=== PATIENT | female | born 1960 ===

== ENCOUNTER 2023-01-10 11:30 | Inpatient (IN) | payer OTHER ==
[~2023-01-10] VITALS: Ht 162.6 cm; Wt 103.0 kg
[2023-01-10] MEDS ORDERED: TELMISARTAN-HC1 EACH PO (13:10)
== END 2023-01-14 13:06 | disposition home or self-care (01) | DRG 741 ==
LOC: O/R 01-12 07:12 → SURG 01-12 11:30 → OB/GYN 01-12 14:57 → SURG 01-12 23:15 → OB/GYN 01-14 13:06
PROVIDERS: ADMIT Obstetrics & Gynecology Gynecologic Oncology; ATTEND Obstetrics & Gynecology Gynecologic Oncology
PROC: 0UT70ZZ Resection of Bilateral Fallopian Tubes, Open Approach (ICD-10-PCS; 2023-01-12)
PROC: 0UT20ZZ Resection of Bilateral Ovaries, Open Approach (ICD-10-PCS; 2023-01-12)
PROC: 07BD0ZZ Excision of Aortic Lymphatic, Open Approach (ICD-10-PCS; 2023-01-12)
PROC: 0DBU0ZZ Excision of Omentum, Open Approach (ICD-10-PCS; 2023-01-12)
PROC: 0UT90ZZ Resection of Uterus, Open Approach (ICD-10-PCS; principal; 2023-01-12 23:15)
DX: D06.0 Carcinoma in situ of endocervix (principal); N84.0 Polyp of corpus uteri; N80.03 Adenomyosis of the uterus; D25.1 Intramural leiomyoma of uterus; D25.2 Subserosal leiomyoma of uterus; D27.0 Benign neoplasm of right ovary